=== PATIENT | female | born 1995 | race African-American/Black ===

== ENCOUNTER 2020-10-05 09:13 | Emergency (ER) | payer MEDICAID ==
[~2020-10-05] VITALS: Ht 162.6 cm; Wt 64.0 kg
[2020-10-05] MEDS ORDERED: IBUPROFEN 600MG TABLET PO ONE (10:45)
[2020-10-05 11:24] VITALS: BP 110/77
== END 2020-10-05 11:27 | disposition home or self-care (01) ==
LOC: ER 09:13 → EDBD 09:13 → ER 11:27
DX: L76.82 Other postprocedural complications of skin and subcutaneous tissue (principal); L03.116 Cellulitis of left lower limb; L02.416 Cutaneous abscess of left lower limb; J45.909 Unspecified asthma, uncomplicated; Z87.828 Personal history of other (healed) physical injury and trauma; Y84.8 Other medical procedures as the cause of abnormal reaction of the patient, or of later complication, without mention of misadventure at the time of the procedure; Y92.018 Other place in single-family (private) house as the place of occurrence of the external cause
CPT/HCPCS: 99283